=== PATIENT | female | born 1950 | race Caucasian/White ===

== ENCOUNTER 2024-10-07 09:14 | Emergency (ER) | payer MEDICARE, OTHER, SELFPAY ==
[2024-10-07 09:20] VITALS: BP 153/67; BMI 34.0
--- NOTE | 2024-10-07 11:32 | CM ---
Addendum entered by Scarlett Cochran 10/07/24 13:46:
Spoke with liaison at [employer] who confirmed they could bring a whelchair out to home tomorrow. They only deliver emergency 02 on the weekends. CM asked attending provider if PT could evaluate patient so that she could safely return
and maneuver around at home while being NWB. Attending agreed. [employer] also confirmed w/c could be rented and they would have the proper rental paperwork tomorrow when they deliver the wheelchair.
Patient and , who is now at bedside, agreeable and understanding of plan.
Original Note:
Case management consult for wheelchair to home. Ailyn is interested in renting a wheelchair, not owning one. Call made out to [employer] to confirm if they rent or if patient would need to purchase wheelchair. She hasn't had a piece of
ambulatory equipment and the wheelchair would be covered by Medicare. Patient verbalized understanding, but still interested in renting wheelchair.
Awaiting call back from [employer].
--- NOTE | 2024-10-07 12:37 | ED.GENMED ---
History of Present Illness
General
Chief Complaint: Musculo-Skeletal Complaint
Time Seen by Provider: 10/07/24 09:33
History of Present Illness
History of Present Illness:
74-year-old female presents the emergency department for evaluation of a right ankle injury sustained while trying to hang [place] decorations, she was standing on a chair that collapsed and she fell to the ground. Arrives with an obvious
deformity of the right ankle. Pain is well-controlled at this time
Review of Systems
Review of Systems
Allergies reviewed?: Yes
All Other Systems: ROS reviewed and negative except as documented in HPI and ROS
Phy Exam
Physical Exam
Physical Exam:
GEN: Well appearing, NAD, WDWN
HEENT: Oral mucosa moist, no scleral icterus
Cardiac: Regular rate
Lung: No respiratory distress, no tachypnea
MSK: Deformity of the right ankle with angulation of the left foot, strong dorsalis pedis pulse, neurovascularly intact
Skin: Good color, no pallor or jaundice, no rashes
Neuro: AO x3, moves all extremities freely
Psych: Calm, cooperative
Course
Orders/Labs/Results
Orders:
Orders
10/07/24 09:28
Ankle, Right 3 view CR [CR Ankle - Right Min 3 Views *] Urgent
Comment:
Reason For Exam: fall/pain
10/07/24 10:51
CR Ankle - Right 2 Views Urgent
Comment:
Reason For Exam: post reduction
10/07/24 11:45
Pt Eval And Treat Urgent
Treatment: R ankle fx, assess safety
Activity Level: As Tolerated
10/07/24 13:28
CR Ankle - Right 2 Views Urgent
Comment:
Reason For Exam: post reduction
Vital Signs
Initial and Last Documented VS:
Initial Vital Signs
Temp Pulse Resp BP Pulse Ox
97.5 F 70 17 153/67 98
10/07/24 09:20 10/07/24 09:20 10/07/24 09:20 10/07/24 09:20 10/07/24 09:20
Last Documented Vital Signs
Temp Pulse Resp BP Pulse Ox
97.5 F 70 17 153/67 98
10/07/24 09:20 10/07/24 09:20 10/07/24 09:20 10/07/24 09:20 10/07/24 09:20
Procedures
Joint/Fracture Reduction
Right Ankle:
Indication for procedure:: Displaced bimalleolar fracture
Procedure completed by: Marcio Singh PA-C
Joint reduced: without anesthesia
Anesthesia/sedation: 1% Lidocaine and Injection to joint space
Injury was: closed
Further treatement: needs further treatment
Post reduction exam: unstable
Capillary Refill: normal
Normal distal neurovascular exam?: Yes
MDM/Problems Addressed
MDM/Problems Addressed:
Patient required repeat reduction procedure as first was inadequate based on repeat x-rays, second reduction procedure was more suitable with less medial angulation. She was evaluated by PT and case management, a wheelchair will be delivered to the
home tomorrow. She will require a wheelchair for 99 months due to a diagnosis of right ankle fracture/dislocation. She requires the wheelchair within the home to complete her daily activities. Communicated with orthopedics for outpatient
follow-up purposes
*Critical Care Note
Total Time (30-74mins, 75-104mins- exclusive of procedures): Not Applicable
ED Attending Note
-
Portions of this chart may have been created with voice recognition software.� Occasional wrong word or��sound alike� substitutions may have occurred due to the inherent limitations of voice recognition software.
Discharge Plan
Departure
Patient Disposition: Home (Routine Discharge)
Date of Disposition: 10/07/24
Time of Disposition: 13:07
Patient with high blood pressure during this ER visit?: No
Discharge Problem:
Bimalleolar fracture of right ankle
Instructions: Ankle Fracture (DC)
Prescriptions:
New
oxycodone 5 mg tablet
5 mg PO Q8H PRN (Reason: Pain) Qty: 10 0RF
Referrals:
Odalis Huertas PA-C [Family Provider] -
Uriel Mcallister MD [Active] - Call in 1-3 days for appt
Activity Restrictions/Additional Instructions:
NO WEIGHT BEARING ON THE RIGHT LEG
CALL ORTHOPEDICS TOMORROW
Interventions
Interventions:
*Risk Screen - Suicide Last Done: 10/07/24 09:25
*General Assessment Last Done: 10/07/24 09:25
*Neglect/Abuse Screening Last Done: 10/07/24 09:25
ED- Fall Risk Assessment Last Done: 10/07/24 09:26
*ED COVID-19 Vaccine History Last Done: 10/07/24 09:25
*Nursing Disposition Last Done: 10/07/24 13:13
ED-Musculoskeletal Assessment Last Done: 10/07/24 09:27
Discharge Date and Time
Discharge Date/Time: 10/07/24 13:54
Print Language: ERITREAN
== END 2024-10-07 13:54 | disposition home or self-care (01) ==
LOC: EMR 09:14
PROVIDERS: EMERGENCY PHYSICIAN Emergency Medicine; FAMILY PHYSICIAN Physician Assistant
DX: S82.841A Displaced bimalleolar fracture of right lower leg, initial encounter for closed fracture (principal); W07.XXXA Fall from chair, initial encounter
CPT/HCPCS: 27810; 99283; 73600; 73610

== ENCOUNTER → 2024-11-23 06:36 | Outpatient (REF) | payer MEDICARE, OTHER, SELFPAY | LOC: RAD 06:36 | PROVIDERS: ATTENDING PHYSICIAN Specialist; FAMILY PHYSICIAN Physician Assistant | DX: N18.30 Chronic kidney disease, stage 3 unspecified (principal) | CPT/HCPCS: 76770 ==

== ENCOUNTER → 2025-09-17 16:05 | Outpatient (REF) | payer MEDICARE, OTHER, SELFPAY | LOC: RAD 16:05 | PROVIDERS: ATTENDING PHYSICIAN Specialist; FAMILY PHYSICIAN Physician Assistant | DX: N13.30 Unspecified hydronephrosis (principal) | CPT/HCPCS: 76770 ==

== ENCOUNTER → 2025-10-05 07:46 | Outpatient (REF) | payer MEDICARE, OTHER, SELFPAY | LOC: RAD 07:46 | PROVIDERS: ATTENDING PHYSICIAN Specialist; FAMILY PHYSICIAN Physician Assistant | DX: N18.32 Chronic kidney disease, stage 3b (principal); R39.14 Feeling of incomplete bladder emptying | CPT/HCPCS: 74176 ==